=== PATIENT | male | born 1930 | race Two or more races ===

== ENCOUNTER 2017-06-30 17:22 | Inpatient (IN) | payer MEDICARE ==
[2017-06-30 18:33] VITALS: BP 160/89; PULSE 80; RESP 16; TEMP 97.9; O2SAT 97
[2017-06-30] MEDS ORDERED: ALLO100T PO (18:55)
[2017-06-30] MEDS ORDERED: METO50TA PO (18:55)
[2017-06-30] MEDS ORDERED: ASPI81CH7 CHEW (18:55)
[2017-06-30] MEDS ORDERED: SIMV20TA PO (18:55)
[2017-06-30] MEDS ORDERED: LOSA100T PO (18:55)
[2017-06-30 19:00] VITALS: PULSE 65
[2017-06-30 19:10] VITALS: BP 169/81; PULSE 66; RESP 18; TEMP 98.3; O2SAT 97
[2017-06-30 20:04] VITALS: O2SAT 98
--- NOTE | 2017-06-30 20:22 | HHI.HP ---
[facility] Service Critical Care Medicine Primary Care Physician Unknown Admission Diagnosis Diagnosis: Chief Complaint: diarrhea Travel History International Travel<30 Days: No Contact w/Intl Traveler <30 Da: No Traveled to Known Affected Are: No History of Present Illness This is an 87-year-old male who presents to outside hospital with 2-3 days of nonbloody diarrhea. During the workup for the diarrhea, he was found to have an aneurysmal dilation of his aorta of significant size which was highly concerning the outside hospital. He was emergently transferred for vascular surgical evaluation. On arrival here, the patient no longer complains of diarrhea. He denies abdominal pain. ROS is otherwise negative. Review of Systems Respiratory: DENIES: Cough, Hemoptysis, Sputum production, Shortness of breath Cardiovascular: DENIES: Chest pain Gastrointestinal: DENIES: Abdominal pain, Black stools, Bloody stools, Constipation, Diarrhea, Nausea, Vomiting Neurologic: DENIES: Headache Past Family Social History Allergies: Coded Allergies: No Known Allergies (Unverified , 06/30/17) Past Medical History HTN gout XOL Past Surgical History orthopedic surgeries hemorrhoidectomy Reported Medications Allopurinol 100 Mg Tab 100 Mg PO DAILY Losartan (Losartan Potassium) 100 Mg Tab 100 Mg PO HS Aspirin Children's (Aspirin) 81 Mg Chew 81 Mg CHEW DAILY Simvastatin 20 Mg Tab 20 Mg PO DAILY Metoprolol Tartrate 50 Mg Tab 50 Mg PO DAILY Active Ordered Medications See MAR Family History Reviewed and found to be noncontributory to his acute illness Social History nonsmoker, from [facility] Physical Exam Vital Signs Vital Signs Date Time Temp Pulse Resp B/P (MAP) Pulse Ox O2 Delivery O2 Flow Rate FiO2 06/30/17 20:04 98 21 06/30/17 19:10 98.3 66 18 169/81 (110) 97 06/30/17 19:10 97 Room Air 06/30/17 18:33 97.9 80 16 160/89 (112) 97 06/30/17 18:33 97 Room Air Physical Exam GENERAL: Elderly male, lying in bed, no acute distress HEENT: Normocephalic. Atraumatic. Pupils equal, round, reactive, conjugate. Mucous membranes are moist NECK: Trachea is midline. There is no JVD. CHEST: Unlabored. Equal chest rise. Room air. CARDIOVASCULAR: Normal rate, regular rhythm. Sinus by telemetry. Blood pressure is 120s systolic on my evaluation. ABDOMEN: Soft, nontender, nondistended. No guarding. No palpable or widened abdominal aortic pulse. MUSCULOSKELETAL: Pulses 2+. No peripheral edema. NEUROLOGICAL: RASS 0. GCS 15. No focal deficits. Caprini VTE Risk Assessment Caprini VTE Risk Assessment: Mod/High Risk (score >= 2) Caprini Risk Assessment Model Point Value = 1 Point Value = 2 Point Value = 3 Point Value = 5 Age 41-60 Minor surgery BMI > 25 kg/m2 Swollen legs Varicose veins or History of unexplained or recurrent spontaneous Oral contraceptives or hormone replacement Sepsis (< 1 month) Serious lung disease, including pneumonia (< 1 month) Abnormal pulmonary function Acute myocardial infarction Congestive heart failure (< 1 month) History of inflammatory bowel disease Medical patient at bed rest Age 61-74 Arthroscopic surgery Major open surgery (> 45 min) Laparoscopic surgery (> 45 min) Malignancy Confined to bed (> 72 hours) Immobilizing plaster cast Central venous access Age >= 75 History of VTE Family history of VTE Factor V Leiden Prothrombin [id number] Lupus anticoagulant Anticardiolipin antibodies Elevated serum homocysteine Heparin-induced thrombocytopenia Other congenital or acquired thrombophilia Stroke (< 1 month) Elective arthroplasty Hip, pelvis, or leg fracture Acute spinal cord injury (< 1 month) Prophylaxis Regimen Total Risk Factor Score Risk Level Prophylaxis Regimen 0-1 Low Early ambulation 2 Moderate Order ONE of the following: *Sequential Compression Device (SCD) *Heparin 5000 units SQ BID 3-4 Higher Order ONE of the following medications: *Heparin 5000 units SQ TID *Enoxaparin/Lovenox 40 mg SQ daily (WT < 150 kg, CrCl > 30 mL/min) *Enoxaparin/Lovenox 30 mg SQ daily (WT < 150 kg, CrCl > 10-29 mL/min) *Enoxaparin/Lovenox 30 mg SQ BID (WT < 150 kg, CrCl > 30 mL/min) AND/OR *Sequential Compression Device (SCD) 5 or more Highest Order ONE of the following medications: *Heparin 5000 units SQ TID (Preferred with Epidurals) *Enoxaparin/Lovenox 40 mg SQ daily (WT < 150 kg, CrCl > 30 mL/min) *Enoxaparin/Lovenox 30 mg SQ daily (WT < 150 kg, CrCl > 10-29 mL/min) *Enoxaparin/Lovenox 30 mg SQ BID (WT < 150 kg, CrCl > 30 mL/min) AND *Sequential Compression Device (SCD) Assessment and Plan Assessment and Plan Assessment: 87-year-old male who originally presented with diarrhea which is now resolved and abdominal aortic aneurysm which does not show signs of rupture or leaking. Dr. Valle was then consulted and recommends outpatient follow-up in the very near future for operative intervention likely endovascular. In terms of his diarrhea, differential would include diverticulosis versus viral gastroenteritis. He currently complains of no symptoms of diarrhea, and feels quite well at this point. We will continue to watch in ICU overnight given outside hospital concerns over his clinical status. Active problems: Abdominal aortic aneurysm Diarrhea Plan: Blood pressure goal less than 140 Monitor on telemetry Recheck CBC, BMP in the morning Watch for any signs of diarrhea Watch for fever, elevated white count which was suggest an infectious source of diarrhea. Likely can transition out of ICU tomorrow. Josh Bland MD Jun 30, 2017 20:22
[2017-06-30] MEDS ORDERED: LACTATED RINGER'S 1000 ML INJ 1,000 ML IV SCH (20:38)
--- NOTE | 2017-06-30 20:38 | PD.VS.CON ---
History of Present Illness Chief Complaint: AAA Consult Requested by: [facility] History of Present Illness 87 yo male otherwise healthy with 2-3 days of diarrhea that he describes as explosive but nonbloody. It has abated. He presented to an outside ED and doesn't endorse abdominal pain / back pain. Otherwise healthy. Past/Family/Social History Past Medical History HTN gout XOL Past Surgical History orthopedic surgeries hemorrhoidectomy Social History nonsmoker, from [facility] Family History no FH of aneurysms Home Medications Reported Medications Allopurinol (Allopurinol) 100 Mg Tab, 100 MG PO DAILY for Gout, #30 TAB 0 Refills 06/30/17 Losartan (Losartan) 100 Mg Tab, 100 MG PO DAILY for Blood Pressure Management, # 30 TAB 0 Refills 06/30/17 Aspirin (Aspirin Children's) 81 Mg Chew, 81 MG CHEW DAILY, TAB 0 Refills 06/30/17 Simvastatin (Simvastatin) 20 Mg Tab, 20 MG PO DAILY for Cholesterol Management, #30 TAB 0 Refills 06/30/17 Metoprolol Tartrate (Metoprolol Tartrate) 50 Mg Tab, 50 MG PO DAILY, #30 TAB 0 Refills 06/30/17 Review of Systems Constitutional: DENIES: Fever, Chills Gastrointestinal: COMPLAINS OF: Diarrhea, DENIES: Abdominal pain Physical Exam Vitals/I&O Date Time Temp Pulse Resp B/P (MAP) Pulse Ox O2 Delivery O2 Flow Rate FiO2 06/30/17 20:04 98 21 06/30/17 19:10 98.3 66 18 169/81 (110) 97 06/30/17 19:10 97 Room Air 06/30/17 18:33 97.9 80 16 160/89 (112) 97 06/30/17 18:33 97 Room Air Neuro: alert, oriented, no distress, acts younger than stated age HEENT: NC/AT Neck: no JVD Heart: reg rate Lungs: clear Abdomen: nontender, palpable pulsatile mass, no tenderness to deep epigastric palpation Vascular: palapble popliteal pulses, generous Extremities: no C/C/E pending outside CT reviewed - intact 6.5 cm AAA that appears amenable to endovascular repair Assessment and Plan Plan Asymptomatic, incidentally found AAA 1. W/U of diarrhea 2. Repeat CTA tomorrow 3. IF stable, clear to d/c and will arrange EVAR as outpatient. 4. ASA, statin Aaron J. Feezor, MD FASC RPVI intertype operator [facility] - Heart and Vascular Surgery at [facility] [phone] Aaron Valle MD Jun 30, 2017 20:38
[2017-06-30 21:40] LABS: HEMATOCRIT 41.7 % (39.0-51.0); HEMOGLOBIN 14.2 GM/DL (13.0-17.0); MEAN CELL VOLUME 92.8 FL (80.0-100.0); MEAN CORPUSCULAR HEMOGLOBIN 31.5 PG (27.0-34.0); MEAN PLATELET VOLUME 7.2 FL (7.0-11.0); PLATELET COUNT 172 TH/MM3 (150-450); RED BLOOD COUNT 4.49 MIL/MM3 (4.50-5.90); RED CELL DISTRIBUTION WIDTH 13.7 % (11.6-17.2)
[2017-06-30 21:56] LABS: ALBUMIN 3.7 GM/DL (3.4-5.0); BICARBONATE 24.9 MEQ/L (21.0-32.0); CALCIUM 8.9 MG/DL (8.5-10.1); CREATININE 1.08 MG/DL (0.60-1.30); DIRECT BILIRUBIN ADULT 0.2 MG/DL (0.0-0.2)
[2017-06-30] MEDS: FAMOTIDINE 20 MG TAB PO SCH (21:58)
[2017-06-30 21:59] LABS: INDIRECT BILIRUBIN 0.5 MG/DL (0.0-0.8); TOTAL BILIRUBIN ADULT 0.7 MG/DL (0.2-1.0); TOTAL PROTEIN 7.6 GM/DL (6.4-8.2)
[2017-06-30] MEDS ORDERED: ENOXAPARIN SODIUM 30 MG/0.3 ML SYRINGE SQ SCH (22:00)
[2017-06-30] MEDS ORDERED: LOSARTAN 50 MG TAB PO SCH (22:00)
[2017-06-30 23:12] VITALS: BP 121/71; PULSE 65; RESP 18; TEMP 97.8; O2SAT 96
[2017-06-30 23:14] VITALS: PULSE 67
[2017-07-01 03:00] VITALS: PULSE 62
[2017-07-01 03:12] VITALS: BP 95/53; PULSE 67; RESP 16; TEMP 97.8; O2SAT 96
[2017-07-01 04:18] LABS: HEMATOCRIT 37.4 % (39.0-51.0); HEMOGLOBIN 12.6 GM/DL (13.0-17.0); MEAN CELL VOLUME 92.4 FL (80.0-100.0); MEAN CORPUSCULAR HEMOGLOBIN 31.1 PG (27.0-34.0); MEAN CORPUSCULAR HGB CONC 33.7 % (32.0-36.0); PLATELET COUNT 154 TH/MM3 (150-450); RED BLOOD COUNT 4.05 MIL/MM3 (4.50-5.90); RED CELL DISTRIBUTION WIDTH 13.4 % (11.6-17.2)
[2017-07-01 04:53] LABS: BICARBONATE 23.6 MEQ/L (21.0-32.0); CALCIUM 8.1 MG/DL (8.5-10.1); CREATININE 0.91 MG/DL (0.60-1.30)
[2017-07-01] MEDS ORDERED: EPINEPHrine HCL (1:10,000) 1 MG/10 ML SYRINGE ONE (05:08)
[2017-07-01] MEDS ORDERED: ATROPINE SULFATE 1 MG/10 ML SYRINGE ONE (05:08)
[2017-07-01] MEDS ORDERED: IOHEXOL 350 MG/ML 10 ML VIAL (for RAD DIAG) IVCONTRAST ONE (05:30)
--- NOTE | 2017-07-01 06:19 | RADRPT ---
EXAM DATE/TIME: 07/01/2017 05:16 [place] COMPARISON: No previous studies available for comparison. INDICATIONS : Known aneurysm, evaluate for stability. IV CONTRAST: 100 cc Omnipaque 350 (iohexol) IV RADIATION DOSE: 5.54 CTDIvol (mGy) MEDICAL HISTORY : Aneurysm, abdominal. SURGICAL HISTORY : None. ENCOUNTER: Initial ACUITY: 1 day PAIN SCALE: 0/10 LOCATION: chest TECHNIQUE: Volumetric scanning was performed using a multi-row detector CT scanner. The data was post processed with a variety of visualization algorithms including full volume maximum intensity projection, multi -planar sliding thin slab reformation, curved planar reformation, and surface rendering techniques. Using automated exposure control and adjustment of the mA and/or kV according to patient size, radiat ion dose was kept as low as reasonably achievable to obtain optimal diagnostic quality images. DICOM format image data is available electronically for review and comparison. FINDINGS: Patient has a known aneurysm. I do not have any prior imaging studies for interval assessment. The thoracic aorta is normal in configuration. The descending aorta measures 3.5 cm in AP dimension and the descending aorta measures 2.5 cm in AP dimension. There is a three-vessel origin of the grea t vessels from the aortic arch. Diffuse enlargement of the thyroid with substernal component midline into the left. No evidence of mediastinal adenopathy. No lungs are clear. There is a saccular aneurysm of the distal abdominal aorta which measures 8.9 cm in length. There is a prominent amount of intraluminal thrombus in the mid and distal portion. In the proximal portion there is no significant intraluminal thrombus and the lumen measures 3.8 x 3.6 cm. In the widest por tion, the aneurysm measures 6.3 x 5.9 cm with the contrast enhancing channel measuring 2.3 cm. The f at about the abdominal aorta is intact without induration or strandiness. The aneurysm terminates at the bifurcation. The left common iliac artery is normal in dimension. The right common iliac arter y measures 1.5 cm. Loops of small bowel are normal in dimension. No calcified gallstones. The kidn eys are symmetric in size without evidence of mass or hydronephrosis. There is a large exophytic cys t protruding from the midpole left kidney measuring 2.6 cm. No evidence of free fluid. Multiple hem oclips in the lower pelvis. CONCLUSION: 1. Normal appearance of the thoracic aorta. 2. Saccular distal abdominal aortic aneurysm measuring 6.3 x 5.9 cm in transverse dimension and 8.9 c m in length. 3. No evidence of dissection. Malcolm Manzanares MD on July 01, 2017 at 6:11 Board Certified Radiologist. This report was verified electronically.
--- NOTE | 2017-07-01 07:20 | PD.VS.PN ---
Subjective Subjective/Hospital Course Pt without abdominal pain this morning,. Looks great. Objective Vitals/I&O Date Time Temp Pulse Resp B/P (MAP) Pulse Ox O2 Delivery O2 Flow Rate FiO2 07/01/17 03:12 97.8 67 16 95/53 (67) 96 07/01/17 03:00 62 06/30/17 23:14 67 06/30/17 23:12 97.8 65 18 121/71 (88) 96 06/30/17 20:04 98 21 06/30/17 19:10 98.3 66 18 169/81 (110) 97 06/30/17 19:10 97 Room Air 06/30/17 19:00 65 06/30/17 18:33 97.9 80 16 160/89 (112) 97 06/30/17 18:33 97 Room Air 07/01/17 07/01/17 07/01/17 07:00 15:00 23:00 Intake Total 907 ml Output Total 925 ml Balance -18 ml Physical Exam resting comfortably no abdominal tenderness to deep palpation Laboratory Laboratory Tests Test 06/30/17 21:26 07/01/17 03:46 White Blood Count 7.0 5.0 Red Blood Count 4.49 4.05 Hemoglobin 14.2 12.6 Hematocrit 41.7 37.4 Mean Corpuscular Volume 92.8 92.4 Mean Corpuscular Hemoglobin 31.5 31.1 Mean Corpuscular Hemoglobin Concent 34.0 33.7 Red Cell Distribution Width 13.7 13.4 Platelet Count 172 154 Mean Platelet Volume 7.2 7.0 Blood Urea Nitrogen 23 20 Creatinine 1.08 0.91 Random Glucose 87 75 Total Protein 7.6 Albumin 3.7 Calcium Level 8.9 8.1 Alkaline Phosphatase 71 Aspartate Amino Transf (AST/SGOT) 18 Alanine Aminotransferase (ALT/SGPT) 20 Total Bilirubin 0.7 Direct Bilirubin 0.2 Sodium Level 140 140 Potassium Level 4.3 4.0 Chloride Level 107 109 Carbon Dioxide Level 24.9 23.6 Anion Gap 8 7 Estimat Glomerular Filtration Rate 65 79 Indirect Bilirubin 0.5 Imaging Last 48 hours Impressions Aorta CTA 07/01/17 0000 Signed Impressions: Service Date/Time: Saturday, July 01, 2017 05:16 - CONCLUSION: 1. Normal appearance of the thoracic aorta. 2. Saccular distal abdominal aortic aneurysm measuring 6.3 x 5.9 cm in transverse dimension and 8.9 cm in length. 3. No evidence of dissection. Malcolm Manzanares MD Assessment and Plan Plan Asymptomatic, incidentally found AAA Reviewed CTA - intact AAA, 6.5 cm. discussed with patient. Plan for elective EVAR on 07/19. Pt cleared to go home from vascular surgery standpoint. Aaron Valle MD FASC RPVI geochemistry teacher [facility] - Heart and Vascular Surgery at [facility] [phone] Aaron Valle MD Jul 01, 2017 07:20
[2017-07-01 07:41] VITALS: O2SAT 97
[2017-07-01] MEDS: FAMOTIDINE 20 MG TAB PO SCH (07:50)
[2017-07-01 07:54] VITALS: BP 120/71; PULSE 85; PULSE 87; RESP 16; TEMP 98; O2SAT 98
[2017-07-01] MEDS ORDERED: LOSARTAN 50 MG TAB PO SCH (09:00)
[2017-07-01] MEDS ORDERED: PRAVASTATIN SOD 40 MG TAB PO SCH (09:00)
[2017-07-01] MEDS ORDERED: ALLOPURINOL 100 MG TAB PO SCH (09:00)
[2017-07-01] MEDS ORDERED: ASPIRIN 81 MG CHEW TAB PO SCH (09:00)
[2017-07-01] MEDS ORDERED: METOPROLOL TARTRATE 50 MG TAB PO SCH (09:00)
--- NOTE | 2017-07-01 09:23 | HHI.DS ---
Discharge Summary Admission Date Jun 30, 2017 at 19:12 Admitting Diagnosis Brief History This is an 87-year-old male who presents to outside hospital with 2-3 days of nonbloody diarrhea. During the workup for the diarrhea, he was found to have an aneurysmal dilation of his aorta of significant size which was highly concerning the outside hospital. He was emergently transferred for vascular surgical evaluation. On arrival here, the patient no longer complains of diarrhea. He denies abdominal pain. ROS is otherwise negative. CBC/BMP: 07/01/17 0346 07/01/17 0346 Significant Findings Laboratory Tests Test 06/30/17 21:26 07/01/17 03:46 Red Blood Count 4.49 MIL/MM3 (4.50-5.90) 4.05 MIL/MM3 (4.50-5.90) Blood Urea Nitrogen 23 MG/DL (7-18) 20 MG/DL (7-18) Estimat Glomerular Filtration Rate 65 ML/MIN (>89) 79 ML/MIN (>89) Hemoglobin 12.6 GM/DL (13.0-17.0) Hematocrit 37.4 % (39.0-51.0) Calcium Level 8.1 MG/DL (8.5-10.1) Chloride Level 109 MEQ/L (98-107) Imaging Last 48 hours Impressions Aorta CTA 07/01/17 0000 Signed Impressions: Service Date/Time: Saturday, July 01, 2017 05:16 - CONCLUSION: 1. Normal appearance of the thoracic aorta. 2. Saccular distal abdominal aortic aneurysm measuring 6.3 x 5.9 cm in transverse dimension and 8.9 cm in length. 3. No evidence of dissection. Malcolm Manzanares MD PE at Discharge GENERAL: Elderly male, no acute distress HEENT: Normocephalic. Atraumatic. Pupils equal, round, reactive, conjugate. Mucous membranes are moist NECK: Trachea is midline. There is no JVD. CHEST: Unlabored. Equal chest rise. Room air. CARDIOVASCULAR: Normal rate, regular rhythm. Sinus by telemetry. Blood pressure is 120s systolic on my evaluation. ABDOMEN: Soft, nontender, nondistended. No guarding. No palpable or widened abdominal aortic pulse. MUSCULOSKELETAL: Pulses 2+. No peripheral edema. NEUROLOGICAL: AAO x3. No focal deficits. Hospital Course Asymptomatic, incidentally found AAA Dr. Valle Reviewed CTA - intact AAA, 6.5 cm. discussed with patient. Plan for elective EVAR on 07/19. Pt cleared to go home from vascular surgery standpoint. Diarrhoea resolved. Patient being discharged home with instructions to f/u with PMD(patient says he already has an appointment in 4 days) [address] Dr[address] Valle as above. Pt Condition on Discharge: Fair Discharge Disposition: Discharge Home Discharge Instructions DIET: Follow Instructions for: Heart Healthy Diet Activities you can perform: See Additionl Instruction Dave Ellis MD Jul 01, 2017 09:23
== END 2017-07-01 10:45 | disposition home or self-care (01) | DRG 301 ==
LOC: HCVI 19:12
PROVIDERS: ADMIT Surgery Surgical Critical Care; ATTEND Surgery Surgical Critical Care
DX: I71.4 Abdominal aortic aneurysm, without rupture (principal); I10 Essential (primary) hypertension; M10.9 Gout, unspecified
CPT/HCPCS: 71275; 74174; 80048; 80076; 85027; J0171; J0461; J1650; J7120; Q9967